=== PATIENT | male | born 1965 | race Two or more races ===

== ENCOUNTER 2023-01-20 10:34 | Inpatient (IN) | payer MEDICAID, OTHER ==
[~2023-01-20] VITALS: Ht 182.9 cm; Wt 115.0 kg
[2023-01-20] MEDS ORDERED: ASPirin 81 mg TAB PO ONE (10:45)
[2023-01-20] MEDS ORDERED: SODIUM CHLORIDE 0.9% 1,000 ML IVB ONE (10:45)
[2023-01-20 11:12] LABS: Basophils # (auto) 0 10 ^3/uL (0-0.2); Basophils % (auto) 0.5 % (0.0-2.0); Eosinophils # (auto) 0.1 10 ^3/uL (0-0.8); Eosinophils % (auto) 2.5 % (0.0-7.0); Hematocrit 28.6 % (41.0-53.0); Lymphocytes % (auto) 24.7 % (10.0-50.0); Mean Corpuscular Hemoglobin 29.8 pg (28.0-32.0); Mean Corpuscular Hgb Conc. 34.9 g/dL (32.0-36.0); Mean Corpuscular Volume 85.3 fL (80.0-100.0); Monocytes # (auto) 0.4 10 ^3/uL (0-1.3); Monocytes % (auto) 9.5 % (0.0-12.0); Neutrophils # (auto) 2.6 10 ^3/uL (1.6-8.6); Neutrophils % (auto) 62.8 % (37.0-80.0); Red Blood Cells 3.35 10^6/uL (4.5-5.90); White Blood Cell 4.2 10^3/uL (4.4-10.8)
[2023-01-20 11:24] LABS: INR 1.06 (0.9-1.15); Partial Thromboplastin Time 24.7 sec (24.6-33.4)
[2023-01-20 11:32] LABS: Albumin 2.7 g/dL (3.4-5.0); Magnesium 1.5 mg/dL (1.6-2.6); Potassium 3.6 mmol/L (3.5-5.1)
[2023-01-20 11:36] LABS: BUN/Creatinine Ratio 26.7 (10.0-20.0); Bilirubin, Total 0.2 mg/dL (0.2-1.0); Total Protein 5.4 g/dL (6.4-8.2)
[2023-01-20 11:46] LABS: Urine Bacteria FEW /hpf (None Seen); Urine Blood Negative /uL (Negative); Urine Hyaline Cast MOD /lpf (0 - 2); Urine Mucus FEW (None Seen); Urine Specific Gravity 1.018 (1.001-1.035); Urine WBC 4 /hpf (0 - 3)
[2023-01-20] MEDS ORDERED: TIZA4CAP PO (13:37)
[2023-01-20] MEDS ORDERED: FLUT110A INH (13:37)
[2023-01-20] MEDS ORDERED: HYDR-4902 PO (13:37)
[2023-01-20] MEDS ORDERED: CHOL4POW4 PO (13:37)
[2023-01-20] MEDS ORDERED: HYDR12.56 PO (13:37)
[2023-01-20] MEDS ORDERED: LOPE1TAB9 PO (13:37)
[2023-01-20] MEDS ORDERED: LISI40TA11 PO (13:37)
[2023-01-20] MEDS ORDERED: PREG75CA PO (13:37)
[2023-01-20] MEDS ORDERED: PRAV20TA3 PO (13:37)
[2023-01-20] MEDS ORDERED: HYDR-3682 PO (13:37)
[2023-01-20] MEDS ORDERED: NITROGLYCERIN 0.4 MG SL TAB SL PRN (14:15)
[2023-01-20] MEDS ORDERED: MORPHINE SULFATE INJ 2 MG/ml SYRG IV PRN (14:15)
[2023-01-20] MEDS ORDERED: DEXTROSE (50%) 50ML SYRG IV PRN (14:30)
[2023-01-20] MEDS: SODIUM CHLORIDE 0.9% 1,000 ML IV SCH ×2 (14:48→22:30)
[2023-01-20] MEDS: HYDROcodone-ACET 5/325MG TAB PO PRN (15:27)
[2023-01-20 15:46] LABS: Cholesterol 147 mg/dL (< 200); Triglycerides 298 mg/dL (< 150)
[2023-01-20 15:49] LABS: HDL Cholesterol 51 mg/dL (40-59); LDL Cholesterol 69 mg/dL (< 100)
[2023-01-20] MEDS: InsuLIN REG 1unit/0.01ml Soln (100units/ml) SC SCH ×2 (17:41→22:00)
[2023-01-20] MEDS: ACCU-CHEK COMFORT CURVE STRIP VI SCH ×2 (17:41→22:16)
[2023-01-20] MEDS: PREGABALIN CAPSULE 75 MG CAP PO SCH (22:24)
[2023-01-21] VITALS (7 sets, daily range): BP systolic 119–150; BP diastolic 69–90
[2023-01-21] MEDS: InsuLIN REG 1unit/0.01ml Soln (100units/ml) SC SCH ×4 (06:26→22:06)
[2023-01-21] MEDS: SODIUM CHLORIDE 0.9% 1,000 ML IV SCH ×3 (06:30→22:09)
[2023-01-21 06:35] LABS: Basophils # (auto) 0 10 ^3/uL (0-0.2); Basophils % (auto) 0.6 % (0.0-2.0); Eosinophils # (auto) 0.1 10 ^3/uL (0-0.8); Eosinophils % (auto) 2.3 % (0.0-7.0); Hematocrit 33.5 % (41.0-53.0); Hemoglobin 11.8 g/dL (13.5-17.5); Lymphocytes # (auto) 1.2 10 ^3/uL (0.4-5.4); Mean Corpuscular Hemoglobin 29.5 pg (28.0-32.0); Mean Corpuscular Hgb Conc. 35.4 g/dL (32.0-36.0); Mean Corpuscular Volume 83.3 fL (80.0-100.0); Monocytes # (auto) 0.4 10 ^3/uL (0-1.3); Monocytes % (auto) 7.5 % (0.0-12.0); Neutrophils # (auto) 3.7 10 ^3/uL (1.6-8.6); Neutrophils % (auto) 67.6 % (37.0-80.0); Nucleated Red Blood Cells % 0.1 %; Red Blood Cells 4.02 10^6/uL (4.5-5.90); Red Cell Distribution Width 12.8 % (11.8-14.3); White Blood Cell 5.5 10^3/uL (4.4-10.8)
[2023-01-21] MEDS: ACCU-CHEK COMFORT CURVE STRIP VI SCH ×4 (07:15→22:07)
[2023-01-21 07:33] LABS: Potassium 4.3 mmol/L (3.5-5.1)
[2023-01-21 07:40] LABS: Albumin 3.3 g/dL (3.4-5.0); BUN/Creatinine Ratio 17.7 (10.0-20.0); Bilirubin, Total 0.4 mg/dL (0.2-1.0); Calcium 9.2 mg/dL (8.5-10.1); Total Protein 6.7 g/dL (6.4-8.2)
[2023-01-21] MEDS: PRAVASTATIN SODIUM 20 MG TAB PO SCH (10:41)
[2023-01-21] MEDS: ENOXAPARIN SOD 40 MG/0.4 ML SYRINGE SC SCH (10:41)
[2023-01-21] MEDS: PREGABALIN CAPSULE 75 MG CAP PO SCH ×2 (10:41→22:07)
[2023-01-21] MEDS: HYDROcodone-ACET 5/325MG TAB PO PRN (15:59)
[2023-01-21] MEDS: HCTZ 25 MG TAB PO SCH (17:29)
[2023-01-21] MEDS: LISINOPRIL 20 MG TAB PO SCH (17:29)
[2023-01-22 05:00] VITALS: BP 119/75
[2023-01-22] MEDS: SODIUM CHLORIDE 0.9% 1,000 ML IV SCH ×2 (06:19→14:30)
[2023-01-22] MEDS: ACCU-CHEK COMFORT CURVE STRIP VI SCH ×2 (06:39→10:59)
[2023-01-22] MEDS: InsuLIN REG 1unit/0.01ml Soln (100units/ml) SC SCH ×2 (06:41→10:58)
[2023-01-22 08:00] VITALS: BP 134/72
[2023-01-22 08:30] VITALS: BP 134/81
[2023-01-22] MEDS: LISINOPRIL 20 MG TAB PO SCH (10:03)
[2023-01-22] MEDS: HCTZ 25 MG TAB PO SCH (10:04)
[2023-01-22] MEDS: PREGABALIN CAPSULE 75 MG CAP PO SCH (10:04)
[2023-01-22] MEDS: PRAVASTATIN SODIUM 20 MG TAB PO SCH (10:04)
[2023-01-22] MEDS: ENOXAPARIN SOD 40 MG/0.4 ML SYRINGE SC SCH (10:04)
[2023-01-22 11:00] VITALS: BP 134/81
[2023-01-22 12:30] VITALS: BP 142/81
[2023-01-22] MEDS: HYDROcodone-ACET 5/325MG TAB PO PRN (14:34)
== END 2023-01-22 15:07 | disposition home or self-care (01) | DRG 207 ==
LOC: ER 10:34 → EDBD 10:34 → TELE 14:16 → TELE-WESTW 23:29
PROVIDERS: ADMIT Registered Nurse; ATTEND Internal Medicine
DX: I95.9 Hypotension, unspecified (principal); E11.9 Type 2 diabetes mellitus without complications; E78.5 Hyperlipidemia, unspecified; I10 Essential (primary) hypertension
CPT/HCPCS: 36415; 71045; 80053; 80061; 81001; 82962; 83036; 83735; 84443; 84484; 85025; 85610; 85730; 93005; 93306; 93971; 96360; G0378; J1815